=== PATIENT | female | born 1985 | race Caucasian/White ===

== ENCOUNTER 2024-12-22 13:23 | Outpatient (CLI) | payer OTHER, SELFPAY ==
--- NOTE | ~2024-12-22 | MR_ITS ---
EXAMINATION: MRA brain wo con DATE: 12/22/2024 14:18 INDICATION: Weakness TECHNIQUE: Magnetic resonance angiography (MRA) of the brain was performed without intravenous contrast by the 3 D [id number] technique. COMPARISON: None. FINDINGS: There is normal flow related signal seen within the vertebral, basilar and internal carotid arteries. The left vertebral artery is dominant. There is no proximal stenosis. There are no aneurysms identi fied. Both A1 and P1 segments are patent. There are also patent intercommunicating and bilateral pos terior communicating arteries. Flow in the cerebral arteries is symmetric. IMPRESSION: 1. Normal MR cerebral angiogram. Reviewed, dictated and finalized at location A. IN EXTERMINATOR
--- NOTE | ~2024-12-22 | US_ITS ---
EXAMINATION: US thyroid DATE: 12/22/2024 14:44 INDICATION: Hypothyroidism, unspecified. TECHNIQUE: Multiple ultrasound images of the thyroid were obtained. COMPARISON: None. FINDINGS: The right thyroid lobe measures 4.6 x 1.5 x 1.1 cm. The left thyroid lobe measures 3.6 x 1.1 x 1.2 c m. The thyroid is diffusely heterogeneous and hypoechoic with increased vascularity. No discrete nod ule. IMPRESSION: 1. Heterogeneous, hypervascular thyroid, consistent with chronic lymphocytic (Augustina) thyroiditis. Reviewed, dictated and finalized at location A. E SHOP ATTENDANT IMPRESSION: 1. Heterogeneous, hypervascular thyroid, consistent with chronic lymphocytic (H ashimoto) thyroiditis.
--- NOTE | ~2024-12-22 | MR_ITS ---
EXAMINATION: MR brain/brain stem wo/w con DATE: 12/22/2024 14:17 INDICATION: Weakness and paresthesias of skin TECHNIQUE: Magnetic resonance imaging (MRI) of the brain and brainstem was performed without and with 10 mL Multihance intravenous contrast. Sequences included sagittal and axial T1-weighted SE, axial d iffusion-weighted FS SE, axial 3D SWAN, axial T2-weighted FLAIR, and axial T2-weighted FSE. Postcontr ast axial and coronal T1-weighted SE was obtained. Apparent diffusion coefficient (ADC) maps were cre ated. COMPARISON: None. FINDINGS: There are no areas of restricted diffusion to suggest acute infarction. No intracranial hemorrhage or abnormal intracranial mass lesion. There are no intraparenchymal signal abnormalities seen on the ot her pulse sequences. The ventricles are symmetric and normal in size. There are no abnormal extra-axi al fluid collections. Flow voids are seen in the cerebral arteries on the T2-weighted sequences consi stent with their expected patency. Mucosal thickening the paranasal sinuses. Visualized orbits and so ft tissues are unremarkable. There are no areas of abnormal enhancement on the post contrast images. IMPRESSION: 1. Normal brain. Reviewed, dictated and finalized at location A. TIC SHEETS SUPERVISOR IMPRESSION: 1. Normal brain.
--- OUTSIDE RECORDS SUMMARY | 2024-12-22 13:34 | XMS_ITS | Clinical Summary ---
Author Organization [facility] Address [address] [place] [address] Care Team Providers Care Diagnostic Radiologist Name Role Phone Nisa Montoya NP Primary Care Provider [phone] Family History Medical History Relation Comments Breast Cancer Neg Hx Social History Tobacco Use Types Packs/Day Years Used Date Smoking Tobacco: Never Assessed Comments Unknown Sex and Gender Information Value Date Recorded Sex Assigned at Not on file Legal Sex Female 5:43 PM CDT Gender Identity Not on file Sexual Orientation Not on file Plan of Treatment Health Maintenance Due Date Last Done Comments Cervical Cancer Screening Pa p Smear (Age 30 to 64) Every 3 Years 1983 Annual Physical 1986 Hepatitis C 2001 Hepatitis B Vaccines (1 of 3 - 19+ 3-dose series) 2002 Cervical Cancer Screening Pa p with HPV Testing (Age 30 to 64) Every 5 Years 2013 Cervical Cancer Screening [facility] HPV 2013 COVID-19 Vaccine (3 - 2023-2 5 season) 2024 01/11/2021, 12/14/2020 Influenza Adult (#1) 2024 08/14/2021, 08/15/2020, 09/09/2019 Mammogram Screening 11/30/2025 11/30/2023, 02/28/2021 DTaP, Tdap and Td Vaccines ( 2 - Td or Tdap) 01/29/2026 01/30/2016 HPV Vaccines Aged Out No longer eligi ble based on patient's age to complete this topic Meningococcal B Vaccine Aged Out No l onger eligible based on patient's age to complete this topic Meningococcal Vaccine Aged Out No dale beronica eligible based on patient's age to complete this topic Pneumococcal Vaccine: Pediatrics (0 to 5 Years) and At-Risk Patients (6 to 64 Years) Aged Out No longer eligible b ased on patient's age to complete this topic RSV Immunizations Under 20 Months Aged Out No longer eligible b ased on patient's age to complete this topic Procedures Procedure Name Priority Date/Time Associated Diagnosis Comments MG SCREENING W DOUGIE PATRICIA DIGI Routine 11/30/2023 2:44 PM ASSEMBLIES AND INSTALLATIONS INSPECTOR Visit for screening mammogram from Last 3 Months or Most Recently Relevant to Health Maintenance Results * MG SCREENING W DOUGIE PATRICIA DIGI (11/30/2023 2:44 PM ASSEMBLIES AND INSTALLATIONS INSPECTOR) Anatomical Region Laterality Modality Breast Bilateral Mammography 11/30/2023 3:19 PM ASSEMBLIES AND INSTALLATIONS INSPECTOR Narrative 11/30/2023 3:36 PM ASSEMBLIES AND INSTALLATIONS INSPECTOR EXAMINATION: Digital bilateral screening mammogram with 3-D tomosynthesis EXAM DATE/TIME: 11/30/2023 2:09 PM REASON FOR EXAM: screening COMPARISON: 02/28/2021. Technique: Digital screening mammography of both breasts was performed in addition to 3-D Tomosynthesis technique. This study was read with the assistance of a computer-aided detection system. Tissue density: The breast tissue is extremely dense, which lowers the sensitivity of mammography. Findings: There is no new focal asymmetry, dominant mass lesion, area of skin thickening, or cluster of suspicious appearing calcifications in either breast to suggest malignancy. ===== IMPRESSION: ===== 1. Stable mammographic appearance with no new findings to suggest malignancy in either breast. Assessment: ACR BI-RADS 2 - BENIGN FINDING(S) Recommendation: 1:Routine Screening Bilateral Comments: Ordered By: SHAILESH ZAVALA Interpreted By: Evelin Peña, 11/30/2023 3:19 PM us Shailesh Zavala TECHNICAL WRITER AND EDITOR MAMMO Final Result from Last 3 Months or Most Recently Relevant to Health Maintenance Insurance [place] [address] Care Teams Diagnostic Radiologist Relationship Specialty Start Date End Date Nisa Montoya NP [address] [place] [id number] PCP - General 11/26/23
--- OUTSIDE RECORDS SUMMARY | 2024-12-22 13:34 | XMS_ITS | Referral Summary ---
Author Organization [facility] Care Team Providers Care Yard Coupler Name Role Phone Cinthia Villa MD Unavailable [phone] Nisa Montoya NP Primary Care Provider [phone] Encounters Date Type Department Care Team Description 09/22/2024 3:40 PM DIRECTOR STUDENT UNION Ancillary Procedure [facility] Imaging at [address] [id number] Acute cough 09/22/2024 3:15 PM DIRECTOR STUDENT UNION Office Visit [facility] Convenient Care at [address] [address] Andressa Ashford NP Acute cough (Primary Dx) from Last 3 Months Allergies Active Allergy Reactions Criticality Noted Date Comments Penicillin Unknown 06/01/2019 Medications etonogestrel (NEXPLANON) 68 mg implantIndication s: Contraception Active propranolol LA (INDERAL LA) 60 mg 24 hr capsuleIndication s:PAMELA (generalized anxiety disorder),Migrain e with aura and without status migrainosus, not intractable Take 1 capsule (60 mg total) by mouth daily 90 capsule 3 Active levothyroxine (SYNTHROID) 112 mcg tabletIndications :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 Take 1 tablet (112 mcg total) by mouth fuel testing technician before breakfast 90 tablet 3 Active Additional Information Patient not taking.Reported on 09/22/2024 escitalopram (LEXAPRO) 10 mg tablet 4 Active SUMAtriptan (IMITREX) 100 mg tablet 4 Active levothyroxine (SYNTHROID) 125 mcg tablet 4 Active benzonatate (TESSALON) 100 mg capsuleIndication s:Cough Take 1 capsule (100 mg total) by mouth 3 (three) times a day as needed for cough 42 capsule 4 Active Active Problems Problem Noted Date Diagnosed Date Pure hypercholesterolemia 05/24/2021 Annual physical exam 05/23/2020 Assessment & Plan (06/12/2022 8:17 AM CDT): Exercise 5 days a week, 30 mins per day recommended. Eat a heart healthy diet consisting of good, healthy protein (eggs, nuts, peanut butter, chicken, fish, turkey, less pork/beef), lots of vegetables, less carbohydrates and less sugar. Annual physical recommended. COVID vaccination-completed + booster Pap-06/05/20- nml, neg hpv Tdap-01/30/2016 Assessment & Plan (05/24/2021 12:28 PM CDT): Exercise 5 days a week, 30 mins per day recommended. Eat a heart healthy diet consisting of good, healthy protein (eggs, nuts, peanut butter, chicken, fish, turkey, less pork/beef), lots of vegetables, less carbohydrates and less sugar. Annual physical recommended. COVID vaccination-completed Pap-sees bull driver, requested Tdap-01/30/2016 Assessment & Plan (05/23/2020 10:43 AM CDT): Exercise 5 days a week, 30 mins per day recommended. Eat a heart healthy diet consisting of good, healthy protein (eggs, nuts, peanut butter, chicken, fish, turkey, less pork/beef), lots of vegetables, less carbohydrates and less sugar. Annual physical recommended. PAP- goes to bull driver next week Tdap- 01/30/2016 Hypothyroidism 01/17/2019 Seasonal allergies 01/17/2019 Resolved Problems Problem Noted Date Diagnosed Date Resolved Date Poison [place] dermatitis 03/29/20202020 Assessment & Plan (03/29/2020 1:56 PM CDT): Medrol Dosepak as directed. Advised can take Zyrtec one daily in the AM for itching and Benadryl as directed as needed at bedtime if itching is disrupting sleep. Instructed to avoid hot showers or baths which may worsen itching. Can apply cool compresses to relieve itching and can take a tepid bath with Aveeno. Recommended follow-up with PCP if symptoms worsen, don't improve, or new symptoms develop. Immunizations Name Administration Dates Next Due IPV 09/09/2019 Influenza, Quadrivalent, Catherine l Culture-based MDCK, Preservative Free, Antibiotic Free, Intramuscular 08/15/2020 Influenza, Quadrivalent, Spl it, Preservative Free, Intramuscular 09/09/2019 Influenza, Trivalent, IM (MDV) 08/14/2021 MMR 09/09/2019 Moderna SARS-CoV-2 Monovalent Vaccination (12+ Y RS) 01/11/2021,12/14/2020 PPD TEST 07/25/2019 Tdap 01/30/2016 Social History Tobacco Use Types Packs/Day Years Used Date Smoking Tobacco: Never Alcohol Use Standard Drinks/Week Comments Yes 0 (1 standard drink = 0.6 oz pur e alcohol) AUDIT-C Answer Date Recorded Q1: How often do you have a drink containing alc ohol? 2-4 times a month 06/19/2022 Q2: How many drinks containi ng alcohol do you have on a typical day when you are drinking? 1 or 2 06/19/2022 Q3: How often do you have si x or more drinks on one occasion? Never 06/19/2022 PHQ-2 Answer Date Recorded PHQ-2 Total Score (If total score is 3 or more points, staff should administer the PHQ-9) 0 06/19/2022 Comments No Sex and Gender Information Value Date Recorded Sex Assigned at Not on file Legal Sex Female 1:44 PM DIRECTOR STUDENT UNION Gender Identity Not on file Sexual Orientation Not on file Last Filed Vital Signs Vital Sign Reading Time Taken Comments Blood Pressure 110/70 09/22/2024 3:25 PM DIRECTOR STUDENT UNION Pulse 70 09/22/2024 3:25 PM DIRECTOR STUDENT UNION Temperature 36.9 C (98.4 F) 09/22/2024 3:25 PM DIRECTOR STUDENT UNION Respiratory Rate 22 09/22/2024 3:25 PM DIRECTOR STUDENT UNION Oxygen Saturation 98% 09/22/2024 3:25 PM DIRECTOR STUDENT UNION Inhaled Oxygen Concentration - - Weight 52.6 kg (116 lb) 09/22/2024 3:25 PM DIRECTOR STUDENT UNION Height 162.6 cm (5' 4 ) 09/22/2024 3:25 PM DIRECTOR STUDENT UNION Body Mass Index 19.91 09/22/2024 3:25 PM DIRECTOR STUDENT UNION Plan of Treatment Not on file Procedures Procedure Name Priority Date/Time Associated Diagnosis Comments XR CHEST PA LATERAL 2 VIEWS Schedule TU, Read TU (Appt Today, Awaiting Results) 09/22/2024 3:51 PM DIRECTOR STUDENT UNION Acute cough MAMMOGRAPHY Routine 11/30/2023 PAP SMEAR WITH HPV Routine 06/05/2020 from Last 3 Months or Most Recently Relevant to Health Maintenance Results * XR Chest Pa Lateral 2 Views (09/22/2024 3:51 PM DIRECTOR STUDENT UNION) Anatomical Region Laterality Modality Body, Chest N/A Digital Radiogra phy 09/22/2024 6:55 PM DIRECTOR STUDENT UNION Narrative 09/22/2024 6:59 PM DIRECTOR STUDENT UNION EXAM DESCRIPTION: XR CHEST PA LATERAL 2 VIEWS REASON FOR STUDY: cough Pt complains of cough for about a week. No surgery to heart, lungs, or chest. Non-smoker. TECHNIQUE: Frontal and lateral radiographic view(s) of the chest. COMPARISON: None. FINDINGS: LUNGS: No focal opacity, pleural effusion, or pneumothorax. HEART/MEDIASTINUM: Cardiac silhouette normal in size. Mediastinal and hilar contours appear normal. LINES/TUBES: None. BONES: No acute osseous abnormality. IMPRESSION: No acute cardiopulmonary abnormality. THIS IS AN ELECTRONICALLY VERIFIED FINAL REPORT 09/22/2024 6:59 PM - Electronically signed by Baljit Barillas M.D. T: Report ID: [id number] Reading Location: [id number] Procedure Note Baljit Barillas Jr., MD - 09/22/2024 EXAM DESCRIPTION: XR CHEST PA LATERAL 2 VIEWS REASON FOR STUDY: cough Pt complains of cough for about a week. No surgery to heart, lungs, orchest. Non-smoker. TECHNIQUE: Frontal and lateral radiographic view(s) of the chest. COMPARISON: None. FINDINGS: LUNGS: No focal opacity, pleural effusion, or pneumothorax. HEART/MEDIASTINUM: Cardiac silhouette normal in size. Mediastinal andhilar contours appear normal. LINES/TUBES: None. BONES: No acute osseous abnormality. IMPRESSION: No acute cardiopulmonary abnormality. THIS IS AN ELECTRONICALLY VERIFIED FINAL REPORT 09/22/2024 6:59 PM - Electronically signed by Baljit Barillas M.D. T: Report ID: [id number] Reading Location: [place] [address] Andressa Ashford DIRECTOR OF RECRUITMENT IMG XR PROCEDURES Final Re sult * MAMMOGRAPHY (11/30/2023) Mammography Normal Historical Provider HEALTH MAINTENANCE Final Result * PAP SMEAR WITH HPV (06/05/2020) Scribed Pap Smear w/HPV Normal Historical Provider HEALTH MAINTENANCE Final Result from Last 3 Months or Most Recently Relevant to Health Maintenance Insurance [facility] CHOICE PLUS Care Teams Yard Coupler Relationship Specialty Start Date End Date Nisa Montoya NP [address] [place] [address] PCP - General Family Medicine 09/22/24 Cinthia Villa MD [facility] [address] [place] [address] Consulting Physician Family Medicine 07/25/19
--- OUTSIDE RECORDS SUMMARY | 2024-12-22 13:34 | XMS_ITS | Encounter Summary ---
Author Organization [facility] Care Team Providers Care Brick Burner Name Role Phone Jigna Win Primary Care Provider [phone] Cinthia Villa MD Unavailable [phone] Nisa Montoya NP Primary Care Provider [phone] Encounter Details Date Type Department Care Team (Latest Contact Info) Description 01/31/2019 Orders Only [facility] CLINCONV ProviderFrancisco MD [address] [place] [id number] Social History Tobacco Use Types Packs/Day Years Used Date Smoking Tobacco: Never Assessed Comments Unknown Sex and Gender Information Value Date Recorded Sex Assigned at Not on file Legal Sex Female 1:44 PM TELEPHONE QUOTATION CLERK Gender Identity Not on file Sexual Orientation Not on file documented as of this encounter Plan of Treatment Not on file documented as of this encounter Procedures Procedure Name Priority Date/Time Associated Diagnosis Comments SCAN - LABS 01/31/2019 12:00 AM CDT documented in this encounter Results * SCAN - LABS (01/31/2019 12:00 AM CDT) Narrative 01/31/2019 12:00 AM CDT Ordered by an unspecified provider. Historical Provider Final Res ult documented in this encounter Visit Diagnoses Not on filedocumented in this encounter Additional Health Concerns Infection Onset Date Last Indicated Resolved Time COVID: Suspected 11/03/2021 11/03/2021 11/03/2021 6:31 PM TELEPHONE QUOTATION CLERK documented as of this encounter Care Teams Brick Burner Relationship Specialty Start Date End Date Jigna Win PA [address] [place] [address] PCP - General Critical Care Med 05/31/19 09/21/24 Nisa Montoya NP [address] [place], [place] [id number] PCP - General Family Medicine 09/22/24 Cinthia Villa MD [address] [place] [address] Consulting Physician Family Medicine 07/25/19 documented as of this encounter
--- OUTSIDE RECORDS SUMMARY | 2024-12-22 13:34 | XMS_ITS | Clinical Summary ---
Author Organization [facility] Care Team Providers Care Memorial Marker Designer Name Role Phone Cinthia Villa MD Unavailable [phone] Nisa Montoya NP Primary Care Provider [phone] Allergies Active Allergy Reactions Criticality Noted Date [...] 1 tablet (112 mcg total) by mouth car clerk pullman before breakfast 90 tablet 3 Active Additional [...] sugar. Annual physical recommended. COVID vaccination-completed Pap-sees attorney general, requested Tdap-01/30/2016 Assessment & Plan (05/23/2020 10:43 AM CDT): Exercise 5 days a week, 30 mins per day recommended. Eat a heart healthy diet consisting of good, healthy protein (eggs, nuts, peanut butter, chicken, fish, turkey, less pork/beef), lots of vegetables, less carbohydrates and less sugar. Annual physical recommended. PAP- goes to attorney general next week Tdap- 01/30/2016 Hypothyroidism 01/17/2019 Seasonal [...] worsen, don't improve, or new symptoms develop. Encounters Date Type Department Care Team Description 09/22/2024 3:40 PM GUEST ROOM ATTENDANT Ancillary Procedure [facility] Imaging at [address] [id number] Acute cough 09/22/2024 3:15 PM GUEST ROOM ATTENDANT Office Visit [facility] Convenient Care at [address] [address] Andressa Ashford, JEFRY Acute cough (Primary Dx) from Last 3 Months Immunizations Name Administration Dates Next Due IPV 09/09/2019 Influenza, Quadrivalent, Catherine l Culture-based MDCK, Preservative Free, Antibiotic Free, Intramuscular 08/15/2020 Influenza, Quadrivalent, Spl it, Preservative Free, Intramuscular 09/09/2019 Influenza, Trivalent, IM (MDV) 08/14/2021 MMR 09/09/2019 Moderna SARS-CoV-2 Monovalent Vaccination (12+ Y RS) 01/11/2021,12/14/2020 PPD TEST 07/25/2019 Tdap 01/30/2016 Surgical History Surgery Date Site/Laterality Comments SECTION May Medical History Medical History Date Comments Hypothyroidism 01/17/2019 Seasonal allergies 01/17/2019 Migraines 2005 Family History Medical History Relation Name Comments Diabetes Brother Brother Heart disease Maternal Grandfather Grandpa Relation Name Status Comments Brother Brother Father Maternal Grandfather Grandpa Maternal Grandmother Mother Alive Paternal Grandfather Paternal Grandmother Social History Tobacco Use Types Packs/Day Years [...] on file Legal Sex Female 1:44 PM GUEST ROOM ATTENDANT Gender Identity Not on file Sexual Orientation Not on file Obstetrics History Last Filed Vital Signs Vital Sign Reading Time Taken Comments Blood Pressure 110/70 09/22/2024 3:25 PM GUEST ROOM ATTENDANT Pulse 70 09/22/2024 3:25 PM GUEST ROOM ATTENDANT Temperature 36.9 C (98.4 F) 09/22/2024 3:25 PM GUEST ROOM ATTENDANT Respiratory Rate 22 09/22/2024 3:25 PM GUEST ROOM ATTENDANT Oxygen Saturation 98% 09/22/2024 3:25 PM GUEST ROOM ATTENDANT Inhaled Oxygen Concentration - - Weight 52.6 kg (116 lb) 09/22/2024 3:25 PM GUEST ROOM ATTENDANT Height 162.6 cm (5' 4 ) 09/22/2024 3:25 PM GUEST ROOM ATTENDANT Body Mass Index 19.91 09/22/2024 3:25 PM GUEST ROOM ATTENDANT Plan of Treatment Health Maintenance Due Date Last Done Comments Hepatitis C Screening 1983 Hepatitis B Screening 2001 Regular Well Visit/Exam 18-64 06/12/2023 06/12/2022, 05/24/2021, 05/23/2020, Additional history exists Depression Screening 06/19/2023 06/19/2022, 06/19/2022, 06/12/2022, Additional history exists Covid-19 Vaccine ( season) 2024 09/25/2021, 01/11/2021, 12/14/2020 Influenza Vaccine (#1) 2024 , 08/15/2020, 09/09/2019 Breast Cancer Screening-Mammogram 11/30/2024 11/30/2023, 11/30/2023, 11/30/2023, Additional history exists Cervical Cancer Screening 06/05/2025 06/05/2020 DTaP/Tdap/Td Vaccine (2 - Td or Tdap) 01/29/2026 01/30/2016 HPV Vaccines Aged Out No longer eligi ble based on patient's age to complete this topic Pneumococcal vaccine <65 Aged Out No longer eligible based on patient's age to complete this topic Varicella Vaccines Discontinued Procedures Procedure Name Priority Date/Time Associated Diagnosis Comments XR CHEST PA LATERAL 2 VIEWS Schedule TU, Read TU (Appt Today, Awaiting Results) 09/22/2024 3:51 PM GUEST ROOM ATTENDANT Acute cough MAMMOGRAPHY Routine 11/30/2023 HM PAP SMEAR WITH HPV Routine 06/05/2020 from Last 3 Months or Most Recently Relevant to Health Maintenance Results * XR Chest Pa Lateral 2 Views (09/22/2024 3:51 PM GUEST ROOM ATTENDANT) Anatomical Region Laterality Modality Body, Chest N/A Digital Radiogra phy 09/22/2024 6:55 PM GUEST ROOM ATTENDANT Narrative 09/22/2024 6:59 PM GUEST ROOM ATTENDANT EXAM DESCRIPTION: XR CHEST PA LATERAL 2 [...] by Baljit Barillas M.D. T: Report ID: [id number] Reading Location: [id number] Procedure Note Baljit Barillas Jr., MD - [...] by Baljit Barillas M.D. T: Report ID: [id number] Reading Location: [id number] Andressa Ashford DESULFURIZER HAND IMG XR PROCEDURES Final Re sult * HM MAMMOGRAPHY (11/30/2023) Mammography Normal Historical Provider HEALTH MAINTENANCE Final Result * HM PAP SMEAR WITH HPV (06/05/2020) Scribed Pap Smear w/HPV Normal Historical Provider HEALTH MAINTENANCE Final Result from Last 3 Months or Most Recently Relevant to Health Maintenance Insurance [facility] CHOICE PLUS [facility] HMO/PPO Address: [place] [address] Care Teams Memorial Marker Designer Relationship Specialty Start Date End Date Nisa Montoya NP [address] [place] [address] PCP - General Family Medicine 09/22/24 Cinthia Villa MD [address] [place] [address] Consulting Physician Family Medicine 07/25/19
== END 2024-12-22 13:24 | disposition home or self-care (01) ==
LOC: ANHIMG 13:24
PROVIDERS: PCP Nurse Practitioner Family; Visit Provider Nurse Practitioner Family
DX: E03.9 Hypothyroidism, unspecified (principal); R53.1 Weakness; R20.2 Paresthesia of skin; G43.109 Migraine with aura, not intractable, without status migrainosus
CPT/HCPCS: 70544; 70553; 76536; A9577